=== PATIENT | male | born 1945 | race Caucasian/White ===

== ENCOUNTER 2020-09-09 03:16 | Inpatient (IN) | payer MEDICAID, OTHER ==
[~2020-09-09] VITALS: Ht 152.4 cm; Wt 55.3 kg
[2020-09-09] MEDS ORDERED: ONDANSETRON HCL 4MG/2ML INJ IV STA (03:53)
[2020-09-09] MEDS ORDERED: MORPHINE SULFATE 4 MG/ML CPJ (NOT FOR IM USE) IV STA (03:53)
[2020-09-09] MEDS ORDERED: NITROGLYCERIN 0.4MG TABLET SL SL PRN (04:00)
[2020-09-09 04:02] LABS: BASOPHILS % 0.5 % (0.0-2.0); EOSINOPHILS % 1.6 % (0.0-5.0); HEMATOCRIT. 43.8 % (42.0-52.0); HEMOGLOBIN. 14.5 g/dL (14.0-18.0); LYMPHOCYTES % 19.8 % (20.0-50.0); MEAN CORPUSCULAR HEMOGLOBIN 30.8 pg (28.0-32.0); MEAN CORPUSCULAR VOLUME 93.3 fL (80.0-94.0); MEAN PLATELET VOLUME 8.1 fl (7.4-10.4); MONOCYTES % 5.8 % (2.0-8.0); NEUTROPHILS % 72.3 % (40.0-76.0); PLATELET 232 x1000/uL (130-400); RED CELL DISTRIBUTION WIDTH 15.9 % (11.6-14.6)
[2020-09-09 04:15] LABS: CHLORIDE 104 mEq/L (98-107)
[2020-09-09] MEDS ORDERED: GUAIFENESIN 200MG/10ML SUGAR FREE UDC PO PRN (06:30)
[2020-09-09] MEDS ORDERED: MORPHINE SULFATE 2 MG/ML CPJ (NOT FOR IM USE) IV PRN (06:30)
[2020-09-09] MEDS ORDERED: CLONIDINE 0.1MG TABLET PO PRN (06:30)
[2020-09-09] MEDS ORDERED: HYDRALAZINE 20MG/ML VIAL IV PRN (06:30)
[2020-09-09] MEDS ORDERED: ONDANSETRON HCL 4MG/2ML INJ IV PRN (06:30)
[2020-09-09] MEDS ORDERED: DOCUSATE SODIUM 100MG CAPSULE PO PRN (06:30)
[2020-09-09] MEDS ORDERED: LORAZEPAM 2MG/ML CPJ IV PRN (06:30)
[2020-09-09] MEDS ORDERED: DIPHENHYDRAMINE 50MG/ML VIAL IV PRN (06:30)
[2020-09-09] MEDS ORDERED: HYDROCODONE/ACETAMINOPHEN 5/325MG TABLET PO PRN (06:30)
[2020-09-09] MEDS ORDERED: IPRATROPIUM/ALBUTEROL 0.5-3(2.5)MG/3ML NEB HHN PRN (06:30)
[2020-09-09] MEDS ORDERED: ACETAMINOPHEN 325MG TABLET PO PRN (06:30)
[2020-09-09] MEDS ORDERED: MAGNESIUM/ALUMINUM HYDROXIDE/SIMETHICONE 30ML UDC PO PRN (06:30)
[2020-09-09] MEDS ORDERED: ENOXAPARIN 80MG/0.8ML SYR SUBCUT NR (07:00)
[2020-09-09] MEDS ORDERED: ASPIRIN 81MG TABLET PO SCH (09:00)
[2020-09-09] MEDS ORDERED: ASPIRIN 81MG EC TABLET PO SCH (09:00)
[2020-09-09 09:30] VITALS: BP 127/57
[2020-09-09] MEDS ORDERED: ATOR-2 PO (09:43)
[2020-09-09] MEDS ORDERED: METO-396 PO (09:43)
[2020-09-09] MEDS ORDERED: ASPI-986 PO (09:43)
[2020-09-09] MEDS ORDERED: AMLO5TAB88 PO (09:43)
[2020-09-09] MEDS ORDERED: LINA1TAB5 PO (09:43)
[2020-09-09] MEDS ORDERED: LISI40TA13 PO (09:43)
[2020-09-09] MEDS ORDERED: TAMS-11 PO (09:43)
[2020-09-09] MEDS ORDERED: FINA1TAB18 PO (09:43)
[2020-09-09 11:09] VITALS: BP 127/57
[2020-09-09] MEDS ORDERED: *PATIENT'S OWN MEDICATION STORAGE XX SCH (11:15)
[2020-09-09 11:24] LABS: T4 FREE 1.05 ng/dL (0.76-1.46)
[2020-09-09 12:00] VITALS: BP 125/67
[2020-09-09] MEDS: SODIUM CHLORIDE 0.9% INJ 3ML FLUSH IVF SCH ×2 (14:46→20:32)
[2020-09-09 16:00] VITALS: BP 120/63
[2020-09-09 16:26] LABS: CREATINE KINASE 89 IU/L (39-308)
[2020-09-09 16:27] LABS: CREATINE KINASE MB FRACTION < 1.0 ng/mL (0.5-3.6)
[2020-09-09 20:00] VITALS: BP 115/63
[2020-09-09] MEDS: METOPROLOL TARTRATE 25MG TABLET PO SCH (20:31)
[2020-09-09] MEDS ORDERED: ENOXAPARIN 40MG/0.4ML SYR SUBCUT SCH (21:00)
[2020-09-09] MEDS ORDERED: ATORVASTATIN CALCIUM 40MG TABLET PO SCH (21:00)
[2020-09-10] VITALS: BP 127/83
[2020-09-10 00:38] LABS: CREATINE KINASE 86 IU/L (39-308)
[2020-09-10 00:39] LABS: CREATINE KINASE MB FRACTION < 1.0 ng/mL (0.5-3.6)
[2020-09-10 04:00] VITALS: BP 124/68
[2020-09-10] MEDS: SODIUM CHLORIDE 0.9% INJ 3ML FLUSH IVF SCH (06:00)
[2020-09-10 07:00] LABS: BASOPHILS % 0.4 % (0.0-2.0); EOSINOPHILS % 3.7 % (0.0-5.0); HEMATOCRIT. 42.8 % (42.0-52.0); HEMOGLOBIN. 14.2 g/dL (14.0-18.0); LYMPHOCYTES % 23.7 % (20.0-50.0); MEAN CORPUSCULAR HEMOGLOBIN 31.1 pg (28.0-32.0); MEAN PLATELET VOLUME 8.3 fl (7.4-10.4); MONOCYTES % 5.8 % (2.0-8.0); NEUTROPHILS % 66.4 % (40.0-76.0); PLATELET 226 x1000/uL (130-400); RED BLOOD CELL COUNT 4.55 mill/uL (4.7-6.1); RED CELL DISTRIBUTION WIDTH 15.7 % (11.6-14.6)
[2020-09-10 07:58] LABS: CHLORIDE 111 mEq/L (98-107)
[2020-09-10 08:00] VITALS: BP 96/50
[2020-09-10] MEDS ORDERED: FINASTERIDE 5MG TABLET PO SCH (09:00)
[2020-09-10] MEDS: METOPROLOL TARTRATE 25MG TABLET PO SCH (09:00)
[2020-09-10] MEDS ORDERED: LISINOPRIL 40MG TABLET PO SCH (09:00)
[2020-09-10] MEDS ORDERED: ENOXAPARIN 30MG/0.3ML SYR SUBCUT SCH (09:00)
[2020-09-10] MEDS ORDERED: ASPIRIN 325MG TABLET PO SCH (09:00)
[2020-09-10] MEDS ORDERED: TAMSULOSIN HCL 0.4MG SR CAPSULE PO SCH (09:00)
[2020-09-10] MEDS ORDERED: AMLODIPINE 5MG TABLET PO SCH (09:00)
[2020-09-10 12:00] VITALS: BP 110/60
[2020-09-10 12:04] VITALS: BP 108/90
== END 2020-09-10 12:50 | disposition home or self-care (01) | DRG 198 ==
LOC: ER 03:16 → 6WST 04:51 → ENRESERV 07:11
PROVIDERS: ADMIT Internal Medicine; ATTEND Internal Medicine
DX: I24.9 Acute ischemic heart disease, unspecified (principal); I25.10 Atherosclerotic heart disease of native coronary artery without angina pectoris; I45.10 Unspecified right bundle-branch block; I10 Essential (primary) hypertension; E78.5 Hyperlipidemia, unspecified; E11.9 Type 2 diabetes mellitus without complications; N17.0 Acute kidney failure with tubular necrosis; I25.2 Old myocardial infarction; Z95.5 Presence of coronary angioplasty implant and graft
CPT/HCPCS: 36415; 71045; 80053; 80061; 82550; 82553; 82962; 83036; 83880; 84439; 84443; 84484; 85025; 85379; 93005; 93306; 93970; 99285; J1650